=== PATIENT | male | born 1990 | race Two or more races ===

== ENCOUNTER 2024-08-01 05:59 | Observation (INO) ==
[2024-08-01] MEDS: Morphine 4 MG/ML VIAL (1 ml) IV ONE ×2 (06:18→06:32)
[2024-08-01] MEDS ORDERED: Morphine 4 MG/ML VIAL (1 ml) ONE (06:24)
[2024-08-01 06:28] LABS: Hematocrit 43.8 % (38-53); Hemoglobin 15.1 g/dL (13.2-16.3); Mean Corpuscular Hemoglobin 30.8 pg (27-33); Mean Corpuscular Hgb Conc 34.4 g/dL (31-36); Mean Corpuscular Volume 89.6 fL (80-97); Mean Platelet Volume 7.7 fL (7.5-11.2); Platelet Count 351 10^3/uL (150-450); Red Blood Count 4.88 10^6/uL (4.06-5.63); Red Cell Distribution Width 12.6 % (12-17)
[2024-08-01 06:30] LABS: INR 1.15 (0.85-1.14)
[2024-08-01] MEDS ORDERED: fentaNYL 100 mcg/2 ml 50 MCG/ML VIAL ONE (06:34)
[2024-08-01] MEDS: fentaNYL 100 mcg/2 ml 50 MCG/ML VIAL IV SLOW PU ONE ×2 (06:40→08:01)
[2024-08-01] MEDS: Iodixanol 320 (CONTRAST) 100 ML SDV IV ONE (06:58)
[2024-08-01 07:01] LABS: Albumin 5.1 g/dL (3.5-5.7); Albumin/Globulin Ratio 1.6 (1-3); Calcium 10.2 mg/dL (8.6-10.3); Creatinine, Serum 1.32 mg/dL (0.67-1.17); Globulin 3.2 g/dL (2-4); Potassium 3.8 mmol/L (3.5-5.0); Total Bilirubin 1.1 mg/dL (0.2-1.0); Total Protein 8.3 g/dL (6.4-8.9)
[2024-08-01 07:04] LABS: ABS Neutrophils 11.9 10^3/uL (1.5-7.6); Eosinophil % 0.1 %; Lymphocyte % 17.8 %
[2024-08-01] MEDS: Lactated Ringers 1000 ml BAG 1,000 ML IV ONE ×2 (07:13→12:26)
[2024-08-01 08:00] LABS: High Sensitivity Troponin 1 Hr < 3 pg/mL (<20)
[2024-08-01] MEDS ORDERED: fentaNYL 100 mcg/2 ml 50 MCG/ML VIAL IV SLOW PU PRN (10:07)
[2024-08-01 11:07] LABS: C Reactive Protein 28.68 mg/L (<8.01); Magnesium 2.1 mg/dL (1.9-2.7)
[2024-08-01] MEDS ORDERED: Morphine 2 MG/ML SYRINGE IV PRN ×5 (11:15→11:57)
[2024-08-01] MEDS: Ondansetron 4 mg VIAL 2 MG/ML 2 ml VIAL IV ONE (11:45)
[2024-08-01] MEDS ORDERED: Senna TAB 8.6 mg TAB PO PRN (11:56)
[2024-08-01] MEDS ORDERED: Magnesium Hydroxide LIQ 30 ML UDC PO PRN (11:56)
[2024-08-01] MEDS ORDERED: Polyethylene Glycol 3350 17 GM PACKET PO PRN (11:56)
[2024-08-01] MEDS: Morphine 2 MG/ML SYRINGE IV PRN (12:18)
[2024-08-01] MEDS ORDERED: Sulfur Hexaflouride MICROSPHR 25 MG VIAL IV PRN (12:37)
[2024-08-01] MEDS ORDERED: Naloxone Nasal Spray 4 MG/0.1 ML NASAL.SPR INTRANASAL PRN (13:14)
[2024-08-01] MEDS: HYDROmorphone 1 MG/1 ML SYRINGE IV SLOW PU PRN ×2 (15:52→19:53)
[2024-08-01] MEDS: Lactated Ringers 1000 ml BAG 1,000 ML IV SCH (17:06)
[2024-08-01 17:58] LABS: Hematocrit 40.4 % (38-53); Hemoglobin 13.9 g/dL (13.2-16.3); Mean Corpuscular Hemoglobin 30.7 pg (27-33); Mean Corpuscular Hgb Conc 34.3 g/dL (31-36); Mean Corpuscular Volume 89.3 fL (80-97); Mean Platelet Volume 7.6 fL (7.5-11.2); Platelet Count 295 10^3/uL (150-450); Red Blood Count 4.52 10^6/uL (4.06-5.63); Red Cell Distribution Width 12.7 % (12-17); White Blood Count 12.4 10^3/uL (3.6-10.2)
[2024-08-01 18:30] LABS: Albumin 4.6 g/dL (3.5-5.7); Albumin/Globulin Ratio 1.6 (1-3); Calcium 9.7 mg/dL (8.6-10.3); Creatinine, Serum 1.06 mg/dL (0.67-1.17); Direct Bilirubin 0.1 mg/dL (0.03-0.18); Globulin 2.8 g/dL (2-4); Indirect Bilirubin 1.3 mg/dL (0.3-1.0); Potassium 3.9 mmol/L (3.5-5.0); Total Bilirubin 1.4 mg/dL (0.2-1.0); Total Protein 7.4 g/dL (6.4-8.9); eGFR CKD-EPI 96.2 (>60)
[2024-08-01 18:36] LABS: ABS Lymphocytes 2.3 10^3/uL (1.0-4.8); ABS Monocytes 1.8 10^3/uL (0.0-1.1); ABS Neutrophils 8.3 10^3/uL (1.5-7.6); ABS Nucleated RBC 0.01 10^3/ul; Eosinophil % 0.3 %; Lymphocyte % 18.1 %; Nucleated Red Blood Cells % 0.1 %/100WBC (0.0-0.8); RBC Morphology Normal (Normal)
[2024-08-01 19:32] LABS: High Sensitivity Troponin 1 Hr 3 pg/mL (<20)
[2024-08-01] MEDS: Magnesium Hydroxide LIQ 30 ML UDC PO SCH (19:58)
[2024-08-01] MEDS: HYDROmorphone 0.5 MG/0.5 ML SYRINGE IV SLOW PU PRN (22:13)
[2024-08-01 23:23] LABS: Urine Appearance Clear; Urine Bacteria Absent /HPF (Absent); Urine Bilirubin Negative (Negative); Urine Blood Negative (Negative); Urine Color Yellow; Urine Glucose Negative (Negative); Urine Ketones 1+ (Negative); Urine Nitrite Negative (Negative); Urine Protein 1+ (>=30 mg/dL) (Negative); Urine Red Blood Cell Absent /HPF (0-Trace); Urine Specific Gravity >1.050 (1.002-1.030); Urine Urobilinogen Negative (Negative); Urine White Blood Cell Absent /HPF (0-Trace)
[2024-08-01 23:54] LABS: Urine Benzodiazepine Screen None Detected (None Detect); Urine Cannabinoids Screen Presumptive Positive (None Detect); Urine Opiates Screen Presumptive Positive (None Detect)
[2024-08-02] MEDS ORDERED: Ondansetron 4 mg VIAL 2 MG/ML 2 ml VIAL IV PRN (00:45)
[2024-08-02] MEDS: HYDROmorphone 1 MG/1 ML SYRINGE IV SLOW PU PRN ×3 (05:18→21:30)
[2024-08-02 06:16] LABS: Hematocrit 35.4 % (38-53); Hemoglobin 12.4 g/dL (13.2-16.3); Mean Corpuscular Hemoglobin 31.2 pg (27-33); Mean Corpuscular Volume 89.1 fL (80-97); Mean Platelet Volume 7.5 fL (7.5-11.2); Platelet Count 282 10^3/uL (150-450); Red Blood Count 3.97 10^6/uL (4.06-5.63); Red Cell Distribution Width 12.6 % (12-17); White Blood Count 12.6 10^3/uL (3.6-10.2)
[2024-08-02 06:38] LABS: Albumin 4.1 g/dL (3.5-5.7); Albumin/Globulin Ratio 1.7 (1-3); Calcium 8.9 mg/dL (8.6-10.3); Creatinine, Serum 0.95 mg/dL (0.67-1.17); Globulin 2.4 g/dL (2-4); HDL Cholesterol 51.5 mg/dL; Magnesium 1.9 mg/dL (1.9-2.7); Potassium 4.2 mmol/L (3.5-5.0); Total Bilirubin 1.3 mg/dL (0.2-1.0); Total Protein 6.5 g/dL (6.4-8.9); eGFR CKD-EPI 109.7 (>60)
[2024-08-02 06:52] LABS: TSH Ultra Thyroid Stim Horm 1.21 mcIU/mL (0.34-5.60)
[2024-08-02] MEDS ORDERED: HYDROmorphone 1 MG/1 ML SYRINGE IV SLOW PU PRN ×6 (07:39→17:49)
[2024-08-02 07:41] LABS: ABS Eosinophils 0.1 10^3/uL (0.0-0.5); ABS Lymphocytes 1.8 10^3/uL (1.0-4.8); ABS Monocytes 1.9 10^3/uL (0.0-1.1); ABS Neutrophils 8.9 10^3/uL (1.5-7.6); Eosinophil % 0.6 %; Lymphocyte % 13.9 %
[2024-08-02] MEDS ORDERED: Magnesium Hydroxide LIQ 30 ML UDC PO PRN (09:36)
[2024-08-02] MEDS ORDERED: Ketorolac 10 mg TAB (NF) PO PRN (09:36)
[2024-08-02] MEDS ORDERED: Polyethylene Glycol 3350 17 GM PACKET PO PRN (09:36)
[2024-08-02] MEDS: Ketorolac 10 mg TAB (NF) PO SCH (11:25)
[2024-08-02] MEDS: HYDROmorphone 0.5 MG/0.5 ML SYRINGE IV SLOW PU PRN ×2 (14:52→21:48)
[2024-08-02] MEDS: Magnesium Hydroxide LIQ 30 ML UDC PO SCH (21:27)
[2024-08-02] MEDS: Senna TAB 8.6 mg TAB PO PRN (21:29)
[2024-08-03] MEDS: Benzocaine/Menthol LOZ PO PRN (06:27)
[2024-08-03 06:50] LABS: ABS Eosinophils 0.2 10^3/uL (0.0-0.5); ABS Lymphocytes 1.7 10^3/uL (1.0-4.8); ABS Monocytes 1.4 10^3/uL (0.0-1.1); ABS Neutrophils 6.5 10^3/uL (1.5-7.6); Eosinophil % 1.9 %; Hematocrit 34.4 % (38-53); Hemoglobin 11.9 g/dL (13.2-16.3); Lymphocyte % 17.1 %; Mean Corpuscular Hemoglobin 30.7 pg (27-33); Mean Corpuscular Hgb Conc 34.6 g/dL (31-36); Mean Corpuscular Volume 88.6 fL (80-97); Mean Platelet Volume 7.4 fL (7.5-11.2); Platelet Count 310 10^3/uL (150-450); Red Blood Count 3.88 10^6/uL (4.06-5.63); Red Cell Distribution Width 12.7 % (12-17); White Blood Count 9.8 10^3/uL (3.6-10.2)
[2024-08-03 07:09] LABS: Calcium 8.7 mg/dL (8.6-10.3); Creatinine, Serum 1.06 mg/dL (0.67-1.17); Potassium 3.9 mmol/L (3.5-5.0); eGFR CKD-EPI 96.2 (>60)
[2024-08-03] MEDS: Senna TAB 8.6 mg TAB PO SCH (09:59)
[2024-08-03 14:39] VITALS: BP 124/79
== END 2024-08-03 16:05 | disposition home or self-care (01) ==
LOC: EDHOLD 05:59 → ED 05:59 → SUATTDRO 10:38 → MEDTELE 12:11
PROVIDERS: ADMIT Internal Medicine; ATTEND Internal Medicine